=== PATIENT | female | born 1975 | race Caucasian/White ===

== ENCOUNTER 2017-01-19 18:13 | Observation (INO) | payer SELFPAY ==
[~2017-01-19] VITALS: Ht 162.6 cm; Wt 109.1 kg
[~2017-01-19 18:13] MED LIST: AMLODIPINE BESY10 MG; AMLODIPINE BESY10 MG PO; AMOXICILLIN500 MG PO; AMOXICILLIN875 MG PO; BUSPAR30 MG PO; CYCLOBENZAPRINE10 MG PO; CYMBALTA20 MG PO; CYMBALTA60 MG PO; Cymbalta; HYDROCODON-ACE1 EAC8; IMITREX50 MG PO; LOSARTAN POTAS100 MG; METHADONE10 MG PO; METHYLDOPA250 MG; METOPROLOL SUCC25 MG PO; METOPROLOL SUCC50 MG PO; MOTRIN800 MG PO; Motrin PO; NAPROSYN500 MG; NAPROSYN500 MG PO; NAPROXEN SODIU550 M1 PO; NEURONTIN300 MG PO; NORVASC10 MG PO; OMEPRAZOLE20 MG; PERCOCET 5/31 TABLET PO; PRINIVIL20 MG PO; REGLAN10 MG PO; ROBAXIN750 MG PO; ROBITUSSIN100 MG/5 M PO; SUMATRIPTAN SUC50 MG PO; TOPAMAX25 MG PO; TOPROL XL50 MG PO; ULTRAM50 MG PO; VOLTAREN50 M1 PO; Xanax PO
[2017-01-19] MEDS ORDERED: IMITREX25 MG PO (19:45)
[2017-01-19 20:29] LABS: HEMATOCRIT 40.1 % (36.0-46.0); MCH 27.6 PG (29.0-34.0); MCHC 32.7 G/DL (30.0-36.0); MCV 84.6 FL (83-99); MEAN PLAT.VOLUME 10.3 uM^3 (9.5-12.4); PLATELET COUNT 244 K/uL (156-360); RBC DIS.WIDTH-CV 13.4 % (11.8-14.6); RBC DIS.WIDTH-SD 40.8 % (39-53); RED BLOOD COUNT 4.74 M/uL (3.80-5.20); WHITE BLOOD COUNT 8.8 K/uL (4.1-10.2)
[2017-01-19 20:44] LABS: CHLORIDE 105 mEq/L (99-109); POTASSIUM 4.5 mEq/L (3.7-5.4); SODIUM 139 mEq/L (136-147)
[2017-01-19 20:46] LABS: GLUCOSE 90 mg/dL (70-99)
[2017-01-19 20:47] LABS: ANION GAP 10 MEQ/L (2-14)
[2017-01-19 20:49] LABS: GFR ESTIMATE (CALCULATED) > 59 mL/min/
[2017-01-19 20:50] LABS: TROP-I INTERPRETATION NEGATIVE; TROPONIN-I 0.01 ng/mL (0.0-0.30); UREA NITROGEN (BUN) 9 mg/dL (9-23)
[2017-01-19 21:41] LABS: QUANTITATIVE HCG < 4.0 MIU/ML
[2017-01-19] MEDS ORDERED: TOPROL XL25 MG PO (21:46)
[2017-01-19] MEDS ORDERED: L-LYSINE500 M1 PO (21:49)
[2017-01-19 22:26] LABS: INFLUENZA A VIRAL ANTIGEN NEGATIVE; INFLUENZA B VIRAL ANTIGEN NEGATIVE
[2017-01-20 01:03] VITALS: BP 139/85
[2017-01-20 04:00] VITALS: BP 112/69
[2017-01-20 07:06] VITALS: BP 119/87
[2017-01-20 07:52] LABS: ALKALINE PHOSPHATASE 59 IU/L (3-129); ANION GAP 8 MEQ/L (2-14); CHLORIDE 102 MEQ/L (99-109); GFR ESTIMATE (CALCULATED) > 59 mL/min/; GLUCOSE 78 mg/dL (70-99); SAMPLE HEMOLYSIS CHECK 0; SAMPLE ICTERIC CHECK 0; SAMPLE LIPEMIA CHECK 0; SODIUM 137 MEQ/L (136-147); TOTAL BILIRUBIN 0.6 MG/DL (0.0-1.0); UREA NITROGEN (BUN) 10 mg/dL (9-23)
[2017-01-20 11:35] VITALS: BP 124/66
== END 2017-01-20 15:12 | disposition home or self-care (01) ==
LOC: EME 18:13 → 5WEST 23:40 → EDOF 23:40 → 5WEST 01-20 00:46
PROVIDERS: Physician Assistant; Physician Assistant Medical
DX: I16.0 Hypertensive urgency (principal); G43.911 Migraine, unspecified, intractable, with status migrainosus; R00.0 Tachycardia, unspecified; F11.20 Opioid dependence, uncomplicated; E66.9 Obesity, unspecified; Z68.41 Body mass index [BMI] 40.0-44.9, adult; Z88.1 Allergy status to other antibiotic agents; Z91.010 Allergy to peanuts; Z87.898 Personal history of other specified conditions; Z82.49 Family history of ischemic heart disease and other diseases of the circulatory system
CPT/HCPCS: 71020; 80048; 80053; 81003; 84443; 84484; 84702; 85027; 87502; 93005; 99281; 99285; G0378; J1885; J2550

== ENCOUNTER 2017-04-07 16:06 | Emergency (ER) | payer OTHER ==
[~2017-04-07] VITALS: Ht 162.6 cm; Wt 111.8 kg
[~2017-04-07 16:06] MED LIST changes: +IMITREX25 MG PO; +L-LYSINE500 M1 PO; +TOPROL XL25 MG PO
[2017-04-07] MEDS ORDERED: BUSPAR7.5 MG PO (17:30)
[2017-04-07 18:50] VITALS: BP 176/99
== END 2017-04-07 18:50 | disposition home or self-care (01) ==
LOC: EME 16:06
DX: R51 Headache (principal); I10 Essential (primary) hypertension; F32.9 Major depressive disorder, single episode, unspecified; G89.29 Other chronic pain; F41.9 Anxiety disorder, unspecified
CPT/HCPCS: 99281; 99285; J0780; J1885; J7030

== ENCOUNTER 2017-07-22 21:28 | Emergency (ER) | payer OTHER ==
[~2017-07-22] VITALS: Ht 162.6 cm; Wt 113.3 kg
[~2017-07-22 21:28] MED LIST changes: +BUSPAR7.5 MG PO
[2017-07-22 23:08] LABS: HEMATOCRIT 39.3 % (36.0-46.0); MCH 27.1 PG (29.0-34.0); MCHC 32.3 G/DL (30.0-36.0); MEAN PLAT.VOLUME 9.8 uM^3 (9.5-12.4); PLATELET COUNT 276 K/uL (156-360); RBC DIS.WIDTH-CV 13.2 % (11.8-14.6); RBC DIS.WIDTH-SD 39.7 % (39-53); RED BLOOD COUNT 4.68 M/uL (3.80-5.20); WHITE BLOOD COUNT 8.8 K/uL (4.1-10.2)
[2017-07-22 23:24] LABS: CHLORIDE 104 mEq/L (99-109); POTASSIUM 3.6 mEq/L (3.7-5.4); SODIUM 140 mEq/L (136-147)
[2017-07-22 23:25] LABS: MAGNESIUM 1.8 mg/dL (1.3-2.7)
[2017-07-22 23:26] LABS: GLUCOSE 90 mg/dL (70-99)
[2017-07-22 23:28] LABS: ANION GAP 11 MEQ/L (2-14)
[2017-07-22 23:29] LABS: TROP-I INTERPRETATION NEGATIVE; TROPONIN-I < 0.01 ng/mL (0.0-0.30)
[2017-07-22 23:30] LABS: GFR ESTIMATE (CALCULATED) > 59 mL/min/
[2017-07-22 23:31] LABS: UREA NITROGEN (BUN) 7 mg/dL (9-23)
[2017-07-22 23:38] LABS: QUANTITATIVE HCG < 4.0 MIU/ML
[2017-07-23] MEDS ORDERED: MOTRIN800 MG PO (01:22)
[2017-07-23 01:27] LABS: TROP-I INTERPRETATION NEGATIVE; TROPONIN-I < 0.01 ng/mL (0.0-0.30)
[2017-07-23 01:48] VITALS: BP 139/77
== END 2017-07-23 01:49 | disposition home or self-care (01) ==
LOC: EME 21:28
PROVIDERS: Physician Assistant
DX: R07.89 Other chest pain (principal); I10 Essential (primary) hypertension; R00.2 Palpitations; Z82.49 Family history of ischemic heart disease and other diseases of the circulatory system; Z87.442 Personal history of urinary calculi
CPT/HCPCS: 71020; 80048; 83735; 84443; 84484; 84702; 85027; 93005; 99281; 99284